=== PATIENT | male | born 1995 | race Two or more races ===

== ENCOUNTER 2025-01-03 23:19 | Emergency (ER) | payer OTHER, SELFPAY ==
[2025-01-03 23:20] VITALS: BMI 31.6
--- NOTE | 2025-01-03 23:23 | EKG_ITS ---
[facility] Test Date: 2025-01-03 Pat Name: REBECA STANLEY Department: Room: - Gender: Male [employer] Operator: : 1995 Requested By: ED Temporary Provider Order Number: [id number] Reading MD: ED Temporary Provider Measurements Intervals [place] Rate: 124 P: 33 DE: 146 QRS: 76 QRSD: 77 T: 33 QT: 298 QTc: 428 Interpretive Statements SINUS TACHYCARDIA LOW QRS VOLTAGE IN PRECORDIAL LEADS [QRS DEFLECTION < 1.0 mV IN CHEST LEADS] ABNORMAL RHYTHM ECG No previous ECG available for comparison /store/S0/[id number].pdf
[2025-01-03 23:33] VITALS: BP 145/85; PULSE 130; RESP 24; TEMP 36.6; O2SAT 98
--- NOTE | 2025-01-03 23:45 | PD.EDRME ---
Rapid Medical Screening Exam RME Arrival date/time: 01/03/25 23:19 Chief Complaint: Allergic Reaction Time Seen by Provider: 01/03/25 23:36 Vital signs: Vital Signs Temperature 97.8 F 01/03/25 23:33 Pulse Rate 130 H 01/03/25 23:33 Respiratory Rate 24 H 01/03/25 23:33 Blood Pressure 145/85 H 01/03/25 23:33 Pulse Oximetry (%) 98 01/03/25 23:33 Oxygen Delivery Method Room Air 01/03/25 23:33 Vital signs reviewed by provider: Yes RME Narrative: 29-year-old male presents to the ED with a complaint of shortness of breath, itchy throat, urticarial rash, and the feeling of tongue swelling that began suddenly just prior to his arrival in the ED. He states he had [employer] tonight. He denies any previous reactions to [employer] food. He also states he had some drinks earlier this evening. I have greeted and performed a focused initial assessment of this patient. A comprehensive ED assessment and evaluation of the patient, analysis of all test results, and completion of the medical decision making process will be conducted by additional ED providers.
[2025-01-03] MEDS: FAMOTIDINE 20 MG TABLET 40 MG PO (23:54)
[2025-01-03 23:56] VITALS: BP 110/85; PULSE 124
[2025-01-03] MEDS: EPINEPHrine INJ 1 MG/ML AMP 0.3 MG SC (23:56)
[2025-01-03] MEDS: DEXAMETHASONE SOD PHOS INJ 10 MG/ML VIAL PO (23:56)
[2025-01-04] VITALS: BP 122/83; PULSE 117; RESP 27; O2SAT 94
[2025-01-04 00:45] VITALS: BP 115/71
[2025-01-04 00:47] VITALS: BP 115/71; PULSE 120; RESP 12; O2SAT 95
[2025-01-04 01:08] VITALS: BP 118/80; PULSE 99; RESP 18; O2SAT 96
--- NOTE | 2025-01-04 01:08 | EDNOTE_ITS ---
ED Allergic Reaction RME/HPI General Chief complaint: Allergic Reaction Stated complaint: HARD TO BREATH, POSSIBLE ALLERGIC REACTION Time Seen by Provider: 01/03/25 23:36 Arrival date/time: 01/03/25 23:19 RME / HPI RME / HPI narrative: 29-year-old male presents to the ED with a complaint of shortness of breath, itchy throat, urticarial rash, and the feeling of tongue swelling that began suddenly just prior to his arrival in the ED. He states he had [employer] tonight. He denies any previous reactions to [employer] food. He also states he had some drinks earlier this evening. I have greeted and performed a focused initial assessment of this patient. A comprehensive ED assessment and evaluation of the patient, analysis of all test results, and completion of the medical decision making process will be conducted by additional ED providers. Related Data Previous Rx's ?Medication ?Instructions ?Recorded crutch ##1 07/02/16 ibuprofen 600 mg tablet 600 mg PO Q6HR PRN PAIN #30 tabs 07/02/16 tramadol 50 mg tablet (Ultram) 50 mg PO Q4HR PRN PAIN #10 tabs 07/02/16 cetirizine 10 mg tablet (Zyrtec) 10 mg PO QDAY PRN all ergy symptoms 01/04/25 #10 tabs famotidine 40 mg tablet (Pepcid) 40 mg PO QDAY #7 tabs 01/04/25 prednisone 20 mg tablet 60 mg (3 x 20 mg) PO QDAY 4 days 01/04/25 #12 tabs Allergies Allergy/AdvReac Type Severity Reaction Status Date / Time No Known Allergies Allergy Verified 01/03/25 23:19 Course Orders Category Date Time Status EKG (ED ONLY) *Do not use* NOW Care 01/03/25 23:23 Completed EKG (ED Only) Stat Exams 01/03/25 23:23 Draft Dexamethasone Inj [Decadron Inj] Med 01/03/25 23:44 Discontinued 10 mg PO X1 ONE DiphenhydrAMINE [Benadryl] Med 01/03/25 23:44 Discontinued 50 mg PO X1 ONE EPINEPHrine Inj [Adrenalin Inj] Med 01/03/25 23:44 Discontinued 0.3 mg SC X1 ONE Famotidine [Pepcid] Med 01/03/25 23:44 Discontinued 40 mg PO X1 ONE Vital Signs Vital signs: Vital Signs Temperature 97.8 F 01/03/25 23:33 Pulse Rate 130 H 01/03/25 23:33 Respiratory Rate 24 H 01/03/25 23:33 Blood Pressure 145/85 H 01/03/25 23:33 Pulse Oximetry (%) 98 01/03/25 23:33 Oxygen Delivery Method Room Air 01/03/25 23:33 Allergic Reaction Medications / Prescriptions Medication administrations:: Medication Administration History Discontinued Medications Dexamethasone Sodium Phosphate (Dexamethasone Sod Phos Inj 10 Mg/Ml Vial) 10 mg PO X1 ONE Stop: 01/03/25 23:45 Last Admin: 01/03/25 23:56 Dose: 10 mg Documented By: CVL Diphenhydramine HCl (Diphenhydramine 25 Mg Capsule) 50 mg PO X1 ONE Stop: 01/03/25 23:45 Last Admin: 01/03/25 23:54 Dose: 50 mg Documented By: CVL Epinephrine HCl (Epinephrine Inj 1 Mg/Ml Amp) 0.3 mg SC X1 ONE Stop: 01/03/25 23:45 Last Admin: 01/03/25 23:56 Dose: 0.3 mg Documented By: CVL Famotidine (Famotidine 20 Mg Tablet) 40 mg PO X1 ONE Stop: 01/03/25 23:45 Last Admin: 01/03/25 23:54 Dose: 40 mg Documented By: CVL Discharge Plan Plan Patient Disposition: HOME (Self Care) Discharge Disposition comment: Stable and improved Prescriptions/Referrals Prescriptions/Med Rec: New prednisone 20 mg tablet 60 mg PO QDAY 4 Days Qty: 12 0RF famotidine [Pepcid] 40 mg tablet 40 mg PO QDAY Qty: 7 0RF cetirizine [Zyrtec] 10 mg tablet 10 mg PO QDAY PRN (Reason: allergy symptoms) Qty: 10 0RF No Action tramadol [Ultram] 50 MG tablet 50 mg PO Q4HR PRN (Reason: PAIN) Qty: 10 0RF Rx Instructions: FOR PAIN, NOT TO EXCEED 8 TABS IN 24 HRS ibuprofen 600 MG tablet 600 mg PO Q6HR PRN (Reason: PAIN) Qty: 30 0RF (DME) crutch 1 PKT misc Qty: 1 0RF Rx Instructions: fit to size and use as needed for comfort Referrals: No Primary/Family,Physician [Primary Care Provider] - In 1 week Problem List Clinical Impression: Allergic reaction Patient/Caregiver Discharge Instructions Education Materials: ED General Allergic Reactions, ED Angioedema Additional Instructions: Take the medications as prescribed and complete the course of prednisone. Follow-up with your primary care physician in 24 to 48 hours. Return to the ED for any new or worsening symptoms. Print Language: Italian Stand Alone Forms: Chitra Award Info., Patient Portal Info Letter PA/MYRNA Supervising Physician SILVIANO/MYRNA Supervising Physician: Dr. Ruiz
== END 2025-01-04 01:20 | disposition home or self-care (01) ==
PROVIDERS: Emergency Provider Emergency Medicine
DX: L23.6 Allergic contact dermatitis due to food in contact with the skin (principal); R00.0 Tachycardia, unspecified
CPT/HCPCS: 93005; 96372; 99283; J0166; J1100; A9270